=== PATIENT | female | born 1965 | race Caucasian/White ===

== ENCOUNTER → 2019-09-12 | Outpatient (CLI) | payer BC ==
[~2019-09-12] MED LIST: LIDOCAINE 1% INJ-PF (10 MG/ML) 30 ML SDV ONE
--- NOTE | 2019-09-12 14:41 | WOMENS IMAGING REPORT ---
EXAM DESCRIPTION: U/S BREAST UNILAT LIMITED IMAGES COMPLETED DATE/TIME: 09/12/2019 2:09 pm REASON FOR STUDY: R92.8 OTHER ABNORMAL AND INCONCLUSIVE FINDINGS ON DIAGNOSTIC IMAGING OF [place] R92.8 OTH ABN AND INCONCLUSIVE FINDINGS ON DX IMAGING OF [place] COMPARISON: 08/21/2019, 08/14/2019, and 01/26/2016 TECHNIQUE: Real-time and static grayscale imaging performed of the right breast targeted to the area of clinical/mammographic concern. Selected color Doppler images recorded. LIMITATIONS: None. FINDINGS: MASS: The patient was scheduled for ultrasound-guided biopsy of abnormal findings demonstr ated on the right breast on recent screening mammography with follow-up diagnostic ultrasound. The s uspicious findings identified on 08/21/2019 ultrasound were not discernible despite careful and thorou gh sonographic interrogation bite the sonography tech and the radiologist, to include performance of vocal fremitus. Incidental note is made of a small cluster of microcysts within the adjacent parench yma at the 4 o'clock position approximately 1 cm from the nipple. Additionally, few scattered simple cysts are seen at the 12 o'clock position as well as the 1 o'clock position. OTHER: No other significant finding. IMPRESSION: 1. Abnormal findings demonstrated on comparison ultrasound are not reproducible. Ultra sound-guided biopsy was aborted. 2. Incidental finding of a small cluster of probable microcysts at the 4 o'clock position, adjacent to be targeted area of concern. BIRAD: 3 Probably benign finding. Initial short-interval follow-up suggested. RECOMMENDATION: RECOMMENDED FOLLOW-UP: Recommend short interval (3 months) repeat sonographic evalua tion of a small cluster of probable microcysts at the 4 o'clock position approximately 1 cm from the nipple. Additionally, recommend focused attempt at re- localizing findings as visualized on comparis on ultrasound performed 08/21/2019. COMMENT: All all examinations, findings, the BI-RADS lexicon, and today's recommendations were discu ssed with the patient at length at the time of imaging. I advised her to have a follow-up discussion with Dr. Gibson regarding the range of appropriate clinical recommendations from continued monitori ng to surgical excision. The [employer] ([employer]) has developed recommendations for screening MRI of the breast s in certain patient populations, to be used in conjunction with mammography. Breast MRI surveillanc e may be appropriate for women with more than 20% lifetime risk of developing breast cancer as deter mined by genetic testing, significant family history of the disease, or history of mantle radiation f or Hodgkins Disease. [employer]CR Practice Guidelines 2008. TECHNICAL DOCUMENTATION: JOB ID: [id number] 2010 [employer]- All Rights Reserved Reading location - IP/workstation name: [email or web address]
== END ==
LOC: WI 12:38 → EDSTATUS 14:07
PROVIDERS: ATTEND Surgery
DX: N60.01 Solitary cyst of right breast (principal)
CPT/HCPCS: 76642; J3490